=== PATIENT | female | born 1960 | race Caucasian/White ===

== ENCOUNTER 2016-11-08 08:09 | Day surgery (SDC) | payer OTHER ==
[2016-11-08 09:00] VITALS: BMI 25.7
[2016-11-08] MEDS ORDERED: Lactated Ringer's 1,000 ML IV ONE ×2 (09:40)
[2016-11-08] MEDS ORDERED: Propofol 10 mg/ml Inj (20 ML) ONE (09:42)
--- NOTE | 2016-11-08 09:43 | CP.SDSHP ---
Same Day Surgery H & P - History Proposed Procedure: egd colonosocpy Pre-Op Diagnosis: reflux, abdom pain, colon screen - Allergies Allergies: Allergies No Known Allergies Allergy (Verified 11/08/16 09:00) - Physical Exam Vital Signs: Vital Signs 11/08/16 09:14 Temperature 97.8 F Pulse Rate 65 Respiratory 16 Rate Blood Pressure 123/80 O2 Sat by Pulse 99 Oximetry Mental Status: Alert & Oriented x3 Neuro: WNL - Impression Impression: reflux, gastritis, colon screen Pt. Evaluated Today:Candidate for Anesthesia & Procedure: Yes - Date & Time Date: 11/08/16 Time: 09:43 Short Stay Discharge - Short Stay Discharge Admitting Diagnosis/Reason for Visit: SCREENING / EPIGASTRIC PAIN Disposition: HOME/ ROUTINE
[2016-11-08 15:18] VITALS: TEMP 97
[2016-11-08 15:19] VITALS: PULSE 68
[2016-11-08 15:20] VITALS: RESP 20; O2SAT 100
[2016-11-08 15:27] VITALS: BP 120/80
== END 2016-11-08 11:30 | disposition home or self-care (01) ==
LOC: C.ENDO 08:09
PROVIDERS: ATTEND Internal Medicine Gastroenterology
DX: Z12.11 Encounter for screening for malignant neoplasm of colon (principal); K64.9 Unspecified hemorrhoids; K29.50 Unspecified chronic gastritis without bleeding; R10.13 Epigastric pain; K21.0 Gastro-esophageal reflux disease with esophagitis; K44.9 Diaphragmatic hernia without obstruction or gangrene
CPT/HCPCS: 43239; 45378; 88305; J2001; J2704; J3010; J7120